=== PATIENT | female | born 1945 | race Caucasian/White ===

== ENCOUNTER → 2016-09-13 | Outpatient (CLI) | payer OTHER, MEDICARE ==
--- NOTE | 2016-09-13 11:29 | DX ---
Weightbearing Right Knee, 3 Views Total, 10:14 a.m. Clinical History: 71-year-old female who underwent a total knee arthroplasty on August 09, 2016, pre sents for follow up evaluation. ICD10 Diagnostic Code: M17.11. Comparison Study: Right knee, dated August 09, 2016. Findings: There is stable anatomic alignment of the tricomponent knee arthroplasty. There is no perip rosthetic lucency to suggest hardware failure, and there is a normal appearance of the radiolucent sp acer. There has been interval resorption of postoperative air, and removal of the pneumatic cuff. The re is a small residual suprapatellar joint effusion. There is an enthesophyte along the anterosuperio r patella where the quadriceps tendon inserts. Impression: Stable anatomic alignment following a tricomponent knee arthroplasty, compared to [place] r 2015.
== END ==
LOC: BMCIMAGING 10:14
PROVIDERS: ATTEND Physician Assistant
DX: Z09 Encounter for follow-up examination after completed treatment for conditions other than malignant neoplasm (principal); Z96.651 Presence of right artificial knee joint

== ENCOUNTER → 2016-11-17 | Outpatient (CLI) | payer OTHER, MEDICARE | LOC: BMCIMAGING 09:57 | PROVIDERS: ATTEND Physician Assistant | DX: Z09 Encounter for follow-up examination after completed treatment for conditions other than malignant neoplasm (principal); Z96.651 Presence of right artificial knee joint; M79.89 Other specified soft tissue disorders ==

== ENCOUNTER → 2017-03-30 | Outpatient (CLI) | payer OTHER, MEDICARE | LOC: BMCIMAGING 10:51 | PROVIDERS: ATTEND Orthopaedic Surgery | DX: Z96.651 Presence of right artificial knee joint (principal) ==

== ENCOUNTER → 2017-04-26 | Outpatient (CLI) | payer OTHER, MEDICARE | LOC: FIMAGING 08:12 | PROVIDERS: ATTEND Internal Medicine | DX: N20.0 Calculus of kidney (principal); N13.30 Unspecified hydronephrosis; K57.30 Diverticulosis of large intestine without perforation or abscess without bleeding; R91.1 Solitary pulmonary nodule; Z90.710 Acquired absence of both cervix and uterus; Z90.722 Acquired absence of ovaries, bilateral ==

== ENCOUNTER → 2017-04-27 | Outpatient (CLI) | payer OTHER, MEDICARE | LOC: BMCIMAGING 10:55 | PROVIDERS: ATTEND Orthopaedic Surgery | DX: M25.511 Pain in right shoulder (principal); Z96.611 Presence of right artificial shoulder joint ==

== ENCOUNTER → 2018-01-18 | Outpatient (CLI) | payer OTHER, MEDICARE | LOC: BMCIMAGING 11:51 | PROVIDERS: ATTEND Internal Medicine | DX: R91.8 Other nonspecific abnormal finding of lung field (principal); M51.34 Other intervertebral disc degeneration, thoracic region ==

== ENCOUNTER 2018-03-11 18:53 | Emergency (ER) | payer OTHER, MEDICARE ==
--- NOTE | 2018-03-11 20:25 | EDPHY ---
H & P Time Seen by Provider: 03/11/18 20:21 HPI/ROS: CHIEF COMPLAINT: Left hand pain HISTORY OF PRESENT ILLNESS: 73-year-old female here with left hand pain after she tripped and fell and landed on outstretched hand. She denies any other associated injury and she is not taking blood thinners. She not hit her head. REVIEW OF SYSTEMS: Constitutional: No fever, no chills. Eyes: No discharge. ENT: No sore throat. Cardiovascular: No chest pain, no palpitations. Respiratory: No cough, no shortness of breath. Gastrointestinal: No abdominal pain, no vomiting. Genitourinary: No hematuria. Musculoskeletal: No back pain. Skin: No rashes. Neurological: No headache. Smoking Status: Former smoker Physical Exam: General Appearance: Alert and no distress. Eyes: Pupils equal and round no injection. Respiratory: Chest is nontender, lungs are clear to auscultation. Cardiac: regular rate and rhythm. Gastrointestinal: Abdomen is soft and nontender, no masses, bowel sounds normal. Musculoskeletal: Neck is supple and nontender. Extremities have full range of motion. Tenderness and swelling to the 3rd 4th and 5th MCP of the left hand Skin: No rashes or lesions. Ecchymosis to the left hand Constitutional: Initial Vital Signs Temperature (C) 36.6 C 03/11/18 18:58 Heart Rate 76 03/11/18 18:58 Respiratory Rate 18 03/11/18 18:58 Blood Pressure 191/91 H 03/11/18 18:58 O2 Sat (%) 95 03/11/18 18:58 O2 Delivery Mode Room Air Allergies/Adverse Reactions: ciprofloxacin Allergy (Intermediate, Verified 03/11/18 18:54) Vomiting codeine Allergy (Intermediate, Verified 03/11/18 18:54) Dyspnea iodine Allergy (Intermediate, Verified 03/11/18 18:54) Dyspnea prochlorperazine edisylate [From Compazine] Allergy (Intermediate, Verified 03/22 18:54) Dyspnea prochlorperazine maleate [From Compazine] Allergy (Verified 03/11/18 18:54) Home Medications: Medication Instructions Recorded Ergocalciferol [Vitamin D2 (*)] 50,000 unit PO FRANCIS 12/03/13 Pantoprazole Sodium [Protonix 40mg 40 mg PO DAILY 12/03/13 (*)] Metoprolol Tartrate [Lopressor 25 25 mg PO BID 12/05/13 mg (*)] Losartan Potassium [Cozaar 25 mg 25 mg PO DAILY 08/04/16 (*)] Aspirin [Aspirin 325 mg (*)] 325 mg PO DAILY #0 tab 08/11/16 celeCOXIB [Celebrex (*)] 200 mg PO 03/11/18 Medical Decision Making - Diagnostics Imaging Results: Imaging Impressions Hand X-Ray 03/11/18 19:10 Impression: 1. Fracture of the proximal phalanx of the left fourth digit. 2. Degenerative changes are noted. ED Course/Re-evaluation: Patient here with proximal phalanx fracture was placed in a volar splint and referred to hand surgery. Differential Diagnosis: Fracture, dislocation, neurovascular injury, compartment syndrome Departure - Departure Disposition: Home, Routine, Self-Care Clinical Impression: Phalanx, proximal fracture of finger Condition: Good Instructions: Finger Fracture (ED) Additional Instructions: Please keep the splint on until they follow up with the orthopedic hand surgeon. Call for an appointment. Referrals: Stacey Molina MD [Primary Care Provider] - As per Instructions Adonis Ace MD [Medical Doctor] - As per Instructions
[2018-03-11 20:37] VITALS: BP 173/103
== END 2018-03-11 20:51 | disposition home or self-care (01) ==
DX: S62.615A Displaced fracture of proximal phalanx of left ring finger, initial encounter for closed fracture (principal); Z79.82 Long term (current) use of aspirin; Z87.891 Personal history of nicotine dependence; W01.0XXA Fall on same level from slipping, tripping and stumbling without subsequent striking against object, initial encounter

== ENCOUNTER → 2018-04-19 | Outpatient (CLI) | payer OTHER, MEDICARE | DX: S62.615D Displaced fracture of proximal phalanx of left ring finger, subsequent encounter for fracture with routine healing (principal) ==

== ENCOUNTER → 2018-05-31 | Outpatient (CLI) | payer OTHER, MEDICARE | LOC: FCPNEURO 05-30 20:30 | PROVIDERS: ATTEND Student in an Organized Health Care Education/Training Program | DX: G47.33 Obstructive sleep apnea (adult) (pediatric) (principal); G47.34 Idiopathic sleep related nonobstructive alveolar hypoventilation ==

== ENCOUNTER → 2018-06-08 | Outpatient (CLI) | payer OTHER, MEDICARE | LOC: BMCIMAGING 09:32 | PROVIDERS: ATTEND Orthopaedic Surgery Hand Surgery | DX: M19.041 Primary osteoarthritis, right hand (principal) | CPT/HCPCS: 86141-90; 86812-90 ==

== ENCOUNTER → 2018-07-17 | Outpatient (CLI) | payer OTHER, MEDICARE | LOC: BMCIMAGING 15:45 | PROVIDERS: ATTEND Family Medicine | DX: M79.604 Pain in right leg (principal); M79.89 Other specified soft tissue disorders ==

== ENCOUNTER 2018-11-29 17:16 | Observation (INO) | payer OTHER, MEDICARE ==
--- NOTE | 2018-11-29 17:24 | EDPHY ---
H & P Time Seen by Provider: 11/29/18 17:23 HPI/ROS: CHIEF COMPLAINT: 2 days of chest pain HISTORY OF PRESENT ILLNESS: Patient history of coronary disease with stenting in 2007. She has hypertension. She presents with 2 days of feeling short of breath especially with exertion walking her dogs. At 7:15 a.m. Today she awakened with tightness in her chest. She still feels a little short of breath. At 11:00 a.m. She felt like her left arm was hot and she has had a little bit of a cough over the last 48 hr. Symptoms are still present on arrival and are mild to moderate in nature. Not associated with leg swelling or hemoptysis or fever or chills. REVIEW OF SYSTEMS: Eye: no change in vision ENT: no sore throat Cardiac: HPI Pulmonary: HPI Abdomen: no vomiting, diarrhea, abdominal pain Musculoskeletal: no back pain Skin: no rash Neuro: no headache Constitutional: no fever : no urinary symptoms Increasing fatigue A comprehensive 10 point review of systems is otherwise negative aside from elements mentioned in the history of present illness. PAST MEDICAL HISTORY: Includes coronary disease with stenting in 2007, hypertension, cholecystectomy, hysterectomy, lumbar spine surgery, GERD Social history: Currently not smoking, [facility] patient. General Appearance: Alert and conversant, cooperative. Eyes: No scleral icterus. ENT, Mouth: Normal mucous membranes. Respiratory: Normal respiratory effort, breath sounds equal, lungs are clear to auscultation. Cardiovascular: Regular rate and rhythm. No murmur. Gastrointestinal: Abdomen is soft and non tender. Neurological: Alert, face symmetric, normal motor and sensory in extremities. Skin: Warm and dry, no rashes. Musculoskeletal: No peripheral edema. No calf tenderness. Psychiatric: Not agitated. Emergency Department course/MDM: EKG does not show acute ST changes. Concern for coronary disease with history and patient's previous stenting. Differential diagnosis considered for chest pain including but not limited to myocardial ischemia, aortic dissection, pericarditis, pulmonary embolus, chest wall pain, pleural inflammation and pulmonary infectious causes. Labs to include x-ray troponin and D-dimer. Sublingual nitroglycerin, patient took regular full aspirin this morning at home. 1809: Chest x-ray personally interpreted shows some pulmonary edema, plan to admit for chest pain with cardiac risk factors and previous stenting. Reviewed with the patient, start IV nitroglycerin, admission hospitalist. A low suspicion for pulmonary embolism, D-dimer less than 0.1 times age. Smoking Status: Former smoker Constitutional: Initial Vital Signs Temperature (C) 36.8 C 11/29/18 17:20 Heart Rate 69 11/29/18 17:20 Respiratory Rate 18 11/29/18 17:20 Blood Pressure 210/107 H 11/29/18 17:20 O2 Sat (%) 94 11/29/18 17:20 O2 Delivery Mode Room Air Allergies/Adverse Reactions: ciprofloxacin Allergy (Intermediate, Verified 11/29/18 17:17) Vomiting codeine Allergy (Intermediate, Verified 11/29/18 17:17) Dyspnea iodine Allergy (Intermediate, Verified 11/29/18 17:17) Dyspnea prochlorperazine edisylate [From Compazine] Allergy (Intermediate, Verified 17:17) Dyspnea prochlorperazine maleate [From Compazine] Allergy (Verified 11/29/18 17:17) Home Medications: Medication Instructions Recorded Ergocalciferol [Vitamin D2 (*)] 50,000 unit PO WE 12/03/13 Pantoprazole Sodium [Protonix 40mg 40 mg PO DAILY 12/03/13 (*)] Metoprolol Tartrate [Lopressor 25 25 mg PO BID 12/05/13 mg (*)] Losartan Potassium [Cozaar 25 mg 25 mg PO HS 08/04/16 (*)] Aspirin [Aspirin 325 mg (*)] 325 mg PO DAILY #0 tab 08/11/16 celeCOXIB [Celebrex (*)] 200 mg PO DAILY 03/11/18 Ascorbic Acid [Vitamin C] 500 mg PO DAILY 11/29/18 Cetirizine [ZyrTEC 10 mg (*)] 10 mg PO HS 11/29/18 Ferrous Gluconate 324 mg PO DAILY 11/29/18 Hydroxychloroquine Sulfate 200 mg PO BID 11/29/18 [Plaquenil 200 mg (*)] Rosuvastatin Calcium 5 mg PO DAILY 11/29/18 predniSONE 5 mg PO DAILY 11/29/18 Medical Decision Making - Diagnostics EKG Interpretation: 12-lead EKG interpreted by me; official reading is in computer system. My interpretation is sinus rhythm with borderline left axis rate 61 no acute ischemic changes. Imaging Results: Imaging Impressions Chest X-Ray 11/29/18 17:35 Impression: 1. COPD/airways disease, without pneumonia. 2. Chronic coronary artery disease. 3. Suspect interstitial lung disease, new since 2013. Imaging: I viewed and interpreted images myself Differential Diagnosis: Differential diagnosis considered for chest pain including but not limited to myocardial ischemia, aortic dissection, pericarditis, pulmonary embolus, chest wall pain, pleural inflammation and pulmonary infectious causes. Consult/Admit Bed Type: [place] [id number] Critical Care Time: Critical care time spent by me, Dr. Whitt, exclusively with the care of this patient was 30 minutes, exclusive of PA or MUD ENGINEER time and exclusive of separate procedures. The organ system at risk was cardiovascular and I ordered the multiple diagnostics, IV nitroglycerin drip to stabilize the patient and prevent worsening of the patient's condition. - Data Points Laboratory Results: Laboratory Results 11/29/18 17:39 11/29/18 17:39 11/29/18 11/29/18 11/29/18 17:39 17:39 17:39 WBC 8.04 10^3/uL 10^3/uL (3.80-9.50) RBC 4.46 10^6/uL 10^6/uL (4.18-5.33) Hgb 13.0 g/dL g/dL (12.6-16.3) Hct 40.5 % % (38.0-47.0) MCV 90.8 fL fL (81.5-99.8) MCH 29.1 pg pg (27.9-34.1) MCHC 32.1 g/dL L g/dL (32.4-36.7) RDW 14.5 % % (11.5-15.2) Plt Count 258 10^3/uL 10^3/uL (150-400) MPV 10.4 fL fL (8.7-11.7) Neut % (Auto) 67.4 % % (39.3-74.2) Lymph % (Auto) 23.0 % % (15.0-45.0) [place] % (Auto) 6.5 % % (4.5-13.0) Eos % (Auto) 2.2 % % (0.6-7.6) Baso % (Auto) 0.5 % % (0.3-1.7) Nucleat RBC Rel Count 0.0 % % (0.0-0.2) Absolute Neuts (auto) 5.42 10^3/uL 10^3/uL (1.70-6.50) Absolute Lymphs (auto) 1.85 10^3/uL 10^3/uL (1.00-3.00) Absolute Monos (auto) 0.52 10^3/uL 10^3/uL (0.30-0.80) Absolute Eos (auto) 0.18 10^3/uL 10^3/uL (0.03-0.40) Absolute Basos (auto) 0.04 10^3/uL 10^3/uL (0.02-0.10) Absolute Nucleated RBC 0.00 10^3/uL 10^3/uL (0-0.01) Immature Gran % 0.4 % % (0.0-1.1) Immature Gran # 0.03 10^3/uL 10^3/uL (0.00-0.10) D-Dimer 0.59 ug/mLFEU H ug/mLFEU (0.00-0.50) Sodium 139 mEq/L mEq/L (135-145) Potassium 4.0 mEq/L mEq/L (3.5-5.2) Chloride 105 mEq/L mEq/L (97-110) Carbon Dioxide 23 mEq/l mEq/l (22-31) Anion Gap 11 mEq/L mEq/L (6-14) BUN 19 mg/dL mg/dL (7-23) Creatinine 0.8 mg/dL mg/dL (0.6-1.0) Estimated GFR > 60 Glucose 95 mg/dL mg/dL (70-100) Calcium 9.6 mg/dL mg/dL (8.5-10.4) POC Troponin I NT-Pro-B Natriuret Pep 11/29/18 11/29/18 17:30 17:26 WBC RBC Hgb Hct MCV MCH MCHC RDW Plt Count MPV Neut % (Auto) Lymph % (Auto) [place] % (Auto) Eos % (Auto) Baso % (Auto) Nucleat RBC Rel Count Absolute Neuts (auto) Absolute Lymphs (auto) Absolute Monos (auto) Absolute Eos (auto) Absolute Basos (auto) Absolute Nucleated RBC Immature Gran % Immature Gran # D-Dimer Sodium Potassium Chloride Carbon Dioxide Anion Gap BUN Creatinine Estimated GFR Glucose Calcium POC Troponin I 0.01 ng/mL ng/mL (0.00-0.08) NT-Pro-B Natriuret Pep 242 pg/mL H pg/mL (0-125) Medications Given: Nitroglycerin (Nitrostat) 0.4 mg SL Q5M PRN PRN Reason: Chest Pain Last Admin: 11/29/18 17:59 Dose: 0.4 mg Discontinued Medications Nitroglycerin/Dextrose (Nitroglycerin 200 Mcg/Ml (Premix)) 250 mls @ 0 mls/hr IV CONT ONE; Titrate PRN Reason: Protocol Stop: 11/29/18 18:17 Last Admin: 11/29/18 18:27 Dose: 250 mls Point of Care Test Results: Chemistry 11/29/18 17:30 POC Troponin I 0.01 ng/mL ng/mL (0.00-0.08) Departure - Departure Disposition: [facility] Inpatient Acute Clinical Impression: Chest pain Qualifiers: Chest pain type: unspecified Qualified Code(s): R07.9 - Chest pain, unspecified Condition: Good
[2018-11-29] MEDS ORDERED: NITROGLYCERIN 0.4 MG BTL SL PRN (17:35)
[2018-11-29 17:43] LABS: PLATELET COUNT 258 10^3/uL (150-400)
--- NOTE | 2018-11-29 17:50 | CPEKG ---
Test Reason : OPEN Blood Pressure : / mmHG Vent. Rate : 061 BPM Atrial Rate : 062 BPM P-R Int : 197 ms QRS Dur : 108 ms QT Int : 432 ms P-R-T Axes : 010 -21 068 degrees QTc Int : 435 ms Sinus rhythm Borderline left axis deviation Confirmed by Edward Whitt ([id number]) on 11/29/2018 5:49:22 PM Referred By: Edward Whitt Confirmed By:Edward Whitt
[2018-11-29] MEDS ORDERED: NITROGLYCERIN/DEXTROSE 250 ML IV ONE (18:16)
[2018-11-29] MEDS ORDERED: ONDANSETRON 4 MG/2 ML VIAL IVP PRN (18:24)
[2018-11-29] MEDS ORDERED: ACETAMINOPHEN 325 MG TAB PO PRN (18:24)
[2018-11-29] MEDS ORDERED: ONDANSETRON DISINTEGRATING 4 MG TAB PO PRN (18:24)
--- NOTE | 2018-11-29 19:01 | PDGENHP ---
History and Physical - Chief Complaint Chest Pain, SOB - History of Present Illness Jessica Ordoñez is a 73 yo F with a PMHx of recently dx Lupus, CAD s/p PCI in 2007, HTN, GERD who presents to [facility] for chest pain and SOB. She reports that chest pain started approx. 2 days ago when she was walking her dogs with associated SOB. She had recurrence of chest pain described as chest tightness this morning when she awoke. It is associated with radiation to her L arm with a warm sensation in that extremity. She denies any palpitations, edema, f/c, d/ c, n/v, abdominal pain. She notes that she was recently diagnosed with lupus and has been started on hydroxychloroquine and prednisone. History Information - Allergies/Home Medication List Allergies/Adverse Reactions: ciprofloxacin Allergy (Intermediate, Verified 11/29/18 17:17) Vomiting codeine Allergy (Intermediate, Verified 11/29/18 17:17) Dyspnea iodine Allergy (Intermediate, Verified 11/29/18 17:17) Dyspnea prochlorperazine edisylate [From Compazine] Allergy (Intermediate, Verified 17:17) Dyspnea prochlorperazine maleate [From Compazine] Allergy (Verified 11/29/18 17:17) Home Medications: Ergocalciferol [Vitamin D2 (*)] 50,000 unit PO FRANCIS 12/03/13 [Last Taken 11/30/13 [id number]] Pantoprazole Sodium [Protonix 40mg (*)] 40 mg PO DAILY 12/03/13 [Last Taken 04/18 40 mg] Metoprolol Tartrate [Lopressor 25 mg (*)] 25 mg PO BID 12/05/13 [Last Taken 06/18 00:00 25 mg] Losartan Potassium [Cozaar 25 mg (*)] 25 mg PO DAILY 08/04/16 [Last Taken Unknown] celeCOXIB [Celebrex (*)] 200 mg PO 03/11/18 [Last Taken Unknown] Hydroxychloroquine Sulfate 11/29/18 [Last Taken Unknown] Prednisone 11/29/18 [Last Taken Unknown] Rosuvastatin Calcium 11/29/18 [Last Taken Unknown] I have personally reviewed and updated: family history, medical history, social history, surgical history - Past Medical History coronary artery disease, hypertension, hyperlipidemia, myocardial infarction - Surgical History Additional surgical history: Shoulder and knee replacements - Family History Positive for: non-pertinent - Social History Smoking Status: Former smoker Review of Systems Review of Systems: ROS: 10pt was reviewed & negative except for what was stated in HPI & below Physical Exam Physical Exam: Temp Pulse Resp BP Pulse Ox 36.8 C 57 L 18 155/76 H 93 11/29/18 17:20 11/29/18 18:55 11/29/18 18:55 11/29/18 18:55 11/29/18 18:55 Constitutional: no apparent distress Eyes: PERRL Ears, Nose, Mouth, Throat: moist mucous membranes Cardiovascular: regular rate and rhythym Respiratory: no respiratory distress Gastrointestinal: soft, non-tender abdomen Skin: warm Musculoskeletal: full muscle strength Neurologic: AAOx3 Psychiatric: anxious Lab Data & Imaging Review 11/29/18 17:39 11/29/18 17:39 WBC 8.04 10^3/uL (3.80-9.50) 11/29/18 17:39 RBC 4.46 10^6/uL (4.18-5.33) 11/29/18 17:39 Hgb 13.0 g/dL (12.6-16.3) 11/29/18 17:39 Hct 40.5 % (38.0-47.0) 11/29/18 17:39 MCV 90.8 fL (81.5-99.8) 11/29/18 17:39 MCH 29.1 pg (27.9-34.1) 11/29/18 17:39 MCHC 32.1 g/dL (32.4-36.7) L 11/29/18 17:39 RDW 14.5 % (11.5-15.2) 11/29/18 17:39 Plt Count 258 10^3/uL (150-400) 11/29/18 17:39 MPV 10.4 fL (8.7-11.7) 11/29/18 17:39 Neut % (Auto) 67.4 % (39.3-74.2) 11/29/18 17:39 Lymph % (Auto) 23.0 % (15.0-45.0) 11/29/18 17:39 [place] % (Auto) 6.5 % (4.5-13.0) 11/29/18 17:39 Eos % (Auto) 2.2 % (0.6-7.6) 11/29/18 17:39 Baso % (Auto) 0.5 % (0.3-1.7) 11/29/18 17:39 Nucleat RBC Rel Count 0.0 % (0.0-0.2) 11/29/18 17:39 Absolute Neuts (auto) 5.42 10^3/uL (1.70-6.50) 11/29/18 17:39 Absolute Lymphs (auto) 1.85 10^3/uL (1.00-3.00) 11/29/18 17:39 Absolute Monos (auto) 0.52 10^3/uL (0.30-0.80) 11/29/18 17:39 Absolute Eos (auto) 0.18 10^3/uL (0.03-0.40) 11/29/18 17:39 Absolute Basos (auto) 0.04 10^3/uL (0.02-0.10) 11/29/18 17:39 Absolute Nucleated RBC 0.00 10^3/uL (0-0.01) 11/29/18 17:39 Immature Gran % 0.4 % (0.0-1.1) 11/29/18 17:39 Immature Gran # 0.03 10^3/uL (0.00-0.10) 11/29/18 17:39 D-Dimer 0.59 ug/mLFEU (0.00-0.50) H 11/29/18 17:39 Sodium 139 mEq/L (135-145) 11/29/18 17:39 Potassium 4.0 mEq/L (3.5-5.2) 11/29/18 17:39 Chloride 105 mEq/L (97-110) 11/29/18 17:39 Carbon Dioxide 23 mEq/l (22-31) 11/29/18 17:39 Anion Gap 11 mEq/L (6-14) 11/29/18 17:39 BUN 19 mg/dL (7-23) 11/29/18 17:39 Creatinine 0.8 mg/dL (0.6-1.0) 11/29/18 17:39 Estimated GFR > 60 11/29/18 17:39 Glucose 95 mg/dL (70-100) 11/29/18 17:39 Calcium 9.6 mg/dL (8.5-10.4) 11/29/18 17:39 POC Troponin I 0.01 ng/mL (0.00-0.08) 11/29/18 17:30 NT-Pro-B Natriuret Pep 242 pg/mL (0-125) H 11/29/18 17:26 Assessment & Plan Assessment: Chest Pain - Reports 2 days of chest pain, at rest and with exertion, improved s/p nitroglycerin - EKG and Trop negative for acute ischemic changes on admission - Will trend Trop x3, repeat EKG - BP significantly elevated on admission, s/p nitro and started on nitro gtt - Given hx of CAD, cardiology consulted by ED on admission, f/u recs - Will order MPS for the AM, NPO at midnight - Continue ASA, B-Олег - Will also order CTA Chest to r/o PE in setting of elevated D-dimer Hypertensive Urgency - BP 200/100's on admission - Patient reports SBP 170 this AM, usually runs elevated - Started on Nitro gtt as above - Will give home BP medications including Losartan and Metoprolol this evening with plan to wean off of Nitro gtt overnight Lupus - Recently dx per patient - Continue home Hydroxychloroquine and Prednisone pending med rec CAD - S/p PCI in 2007 - Management of acute chest pain as above - Continue home ASA, B-Олег, and statin pending med rec ILD? - Noted on CXR, new from 2013, also with recently dx Lupus - CTA Chest pending, may need HRCT in the future - Consider pulmonology consult as inpatient vs. outpatient for further evaluation and management FEN: Cardiac, NPO at midnight DVT PPx: Lovenox Code: FULL Dispo: Admit to Observation
[2018-11-29] MEDS ORDERED: IOPAMIDOL (ISOVUE-370) 150 ML BTL IV ONE (19:17)
[2018-11-29] MEDS ORDERED: NITROGLYCERIN/DEXTROSE 250 ML IV SCH (19:30)
[2018-11-29] MEDS ORDERED: ERGOCALCIFEROL 50,000 I.UNIT CAP PO SCH (20:00)
[2018-11-29] MEDS ORDERED: CETIRIZINE 10 MG TAB PO SCH (21:00)
[2018-11-29] MEDS: METOPROLOL TARTRATE 25 MG TAB PO SCH ×2 (21:49→21:50)
[2018-11-29] MEDS: HYDROXYCHLOROQUINE SULFATE 200 MG TAB PO SCH (21:50)
[2018-11-29] MEDS: LOSARTAN POTASSIUM 25 MG TAB PO SCH ×2 (21:50)
[2018-11-30] MEDS ORDERED: predniSONE 5 MG TAB PO SCH (09:00)
[2018-11-30] MEDS ORDERED: FERROUS SULFATE 325 MG TAB PO SCH (09:00)
[2018-11-30] MEDS ORDERED: ROSUVASTATIN CALCIUM 10 MG TAB PO SCH (09:00)
[2018-11-30] MEDS ORDERED: ASPIRIN 325 MG TAB PO SCH (09:00)
[2018-11-30] MEDS ORDERED: PANTOPRAZOLE SODIUM 40 MG TAB PO SCH (09:00)
[2018-11-30] MEDS ORDERED: ENOXAPARIN 40 MG/0.4 ML SYR SC SCH (09:00)
[2018-11-30] MEDS: HYDROXYCHLOROQUINE SULFATE 200 MG TAB PO SCH (09:54)
[2018-11-30] MEDS: METOPROLOL TARTRATE 25 MG TAB PO SCH (09:54)
--- NOTE | 2018-11-30 11:28 | ASMTCMCOM ---
CM Note CM Note Notes: Pt is a 73 y/o female admitted for chest pain. Therapies have been ordered and awaiting recommendations. Needs are TBD at this time. CM to follow. Plan: TBD Date Signed: 11/30/2018 11:28 AM Electronically Signed By:JOSIAH Goddard
[2018-11-30] MEDS ORDERED: REGADENOSON 0.4 MG/5 ML SYR IVP ONE (12:16)
--- NOTE | 2018-11-30 13:25 | CPR ---
[f rep st] NONINVASIVE CARDIAC PROCEDURE REPORT REPORT TITLE: Lexiscan injection of Lexiscan MPI study. INDICATION FOR PROCEDURE: Lightheadedness, chest pressure, known history of CAD, unable to run on tr Divided. PRE: After obtaining informed consent, ensuring patient's n.p.o. status of caffeine for greater than 12 hours, patient was placed on electrocardiogram. Initial EKG shows sinus rhythm, leftward axis, w ith nonspecific T-wave abnormalities in inferior leads. The patient denies any chest pain, pressure, or symptoms suggesting of ischemia. Initial blood pressure 120/68, saturation 96% on 2 L nasal tobi holly. The patient denies chest pain, pressure, shortness of breath, or symptoms suggesting of ischemi a. INJECTION: Patient was given Lexiscan slow IV push, followed by nuclear isotope. She was noted to i ncrease her heart rate up to 75 beats per minute after 1 minute post injection, with symptoms of shor tness of breath and mild chest pressure, this dissipated within 2 minutes post-injection with caffein ated beverage. Her vital signs remained stable, her electrocardiogram remained unchanged. By 5 sean mihir post injection, all her symptoms subsided, her heart rate returned down to 69 beats per minute, a nd no significant EKG changes. Blood pressure 128/66, saturation 99% on room air. IMPRESSION: A 73-year-old female with known history of CAD, ongoing episodes of lightheadedness, fabio ng evaluated for coronary ischemia by Dorothea MPI study. No significant EKG changes noted with injectio n. Mild shortness of breath and chest pressure, which subsided within 2 minutes post injection with caffeinated beverage. Currently, she is symptom free. Her vital signs are stable. She will finish poststress imaging in Nuclear Medicine at this time. /[id number]/MODL
[2018-11-30 15:24] VITALS: BP 146/78
[2018-11-30] MEDS ORDERED: LOSARTAN POTASSIUM 50 MG TAB PO SCH (16:48)
--- NOTE | 2018-11-30 16:51 | PDDCSUM ---
Discharge Summary Discharge Summary: Date of Admission: 11/29/2018 Date of Discharge: 11/30/2018 Studies: Lexiscan stress with MPI Discharge Diagnoses: 1. Chest pain, likely related to 2. Severe hypertension 3. Chest x-ray changes concerning for new interstitial lung disease 4. CAD s/p PCI 5. SLE Brief Hospital Course: 73yo F with history of CAD s/p PCI in 2007, recent diagnosis of SLE on prednisone and plaquenil presented with 2 days of chest pain associated with dyspnea. Her BP was 200/100s on admission. She was started on a nitroglycerin infusion with improvement in her BP; her chest pain resolved with improvement in BP. She had serial cardiac enzymes and ECG that were negative for ischemia. Telemetry was without arrhythmia. A d-dimer was elevated but not significantly elevated when adjusted for her age; she also has an iodine allergy and would be unable to get CTA chest. She was ambulating without chest pain prior to discharge. We did increase her losartan and her BP remained 140s/70s at time of discharge. I encouraged her to keep a BP log. Of note, her chest x-ray was suggestive of new interstitial lung disease. This is a possibility with her SLE. I discussed this with her. She would like to get an outpatient CT of her chest. I think this would need to be high resolution. Medications: Please refer to EMR for complete list. I increased her losartan from 25 to 50mg daily. Follow Up Plan: 1. She has clinic appointment with her PCP Dr Molina and embedded linux engineer Dr Hankins in the next 1-2 weeks 2. Repeat BMP in 1 week to assess renal function 3. Consider non-contrasted high resolution chest CT Physical Exam: Vitals reviewed, BP 140/70s. Alert and oriented, rrr, lungs clear without crackles or wheezes, abdomen soft and nt, no leg edema or JVD.
== END 2018-11-30 18:49 | disposition home or self-care (01) ==
LOC: F2W 20:15
PROVIDERS: ADMIT Internal Medicine; ATTEND Internal Medicine
DX: R07.89 Other chest pain (principal); I16.0 Hypertensive urgency; J84.9 Interstitial pulmonary disease, unspecified; I25.10 Atherosclerotic heart disease of native coronary artery without angina pectoris; Z95.5 Presence of coronary angioplasty implant and graft; M32.9 Systemic lupus erythematosus, unspecified
CPT/HCPCS: 71046; 78452; 93005; 93017; 96372; 96374; 97161; 97166; 99291; A9500; G0378; J1650; J2785; J7512; 84484-ER; Q9967

== ENCOUNTER → 2018-12-05 | Outpatient (CLI) | payer OTHER, MEDICARE | LOC: FIMAGING 13:53 | PROVIDERS: ATTEND Internal Medicine | DX: R93.89 Abnormal findings on diagnostic imaging of other specified body structures (principal); J84.9 Interstitial pulmonary disease, unspecified; J98.9 Respiratory disorder, unspecified; R91.8 Other nonspecific abnormal finding of lung field; I77.810 Thoracic aortic ectasia; I25.10 Atherosclerotic heart disease of native coronary artery without angina pectoris; M32.9 Systemic lupus erythematosus, unspecified ==

== ENCOUNTER → 2018-12-13 | Day surgery (SDC) | payer OTHER, MEDICARE ==
[~2018-12-13] MED LIST: ASPIRIN EC 325 MG TAB PO ONE; ATROPINE SULFATE 1 MG/10 ML SYR IVP PRN; DIAZEPAM 5 MG TAB PO ONE; FAMOTIDINE 20 MG TAB PO ONE; FAMOTIDINE 20 MG/NACL 50 ML IV ONE; IOPAMIDOL (ISOVUE-370) 150 ML BTL IV ONE; LIDOCAINE 1% 300 MG/30 ML SDV ONE; MIDAZOLAM 2 MG/2 ML VIAL ONE; NITROGLYCERIN 0.4 MG BTL SL PRN; NS 1,000 ML IV ONE; ONDANSETRON 4 MG/2 ML VIAL IVP PRN; diphenhydrAMINE 25 MG CAP PO ONE; fentaNYL 100 MCG/2 ML INJ ONE; methylPREDNISolone SOD SUCC 125 MG/2 ML VIAL IVP ONE
[2018-12-13 10:15] LABS: PLATELET COUNT 224 10^3/uL (150-400)
[2018-12-13 10:23] LABS: INR 0.98 (0.83-1.16); PROTIME(PATIENT) 12.6 SEC (12.0-15.0)
--- NOTE | 2018-12-13 11:14 | PDHPUP ---
History & Physical Update H&P update statement: This history and physical update is based on an assessment of the patient which was completed after admission or registration (within 24 hours), but prior to the surgery/procedure. 73 year old female with hx of CAD and previous PCI to LAD with ongoing complaints of sob, ridley and exertional chest pain. Plan for right and left heart cath. Risks and benefits discussed in detail. Consents signed. Pt agreeable to pursue. H&P update: H&P reviewed & patient examined, no change in patient's condition since H&P completed (Pt reports allergy to contrast. I have premedicated with solumedrol, benadryl and pepcid. )
--- NOTE | 2018-12-13 11:14 | PDPROPOC ---
Sedation Plan of Care Sedation Plan of Care: vital signs stable, mental status noted, patient educated of risks, benefits, alternatives, patient can tolerate sedation ASA Classification: ASA 2 Planned drugs: fentanyl, midazolam Mallampati Score: Class 2 Mallampati Reference Image: Patient passed 3-3-2 rule?: Yes
--- NOTE | 2018-12-13 13:25 | CPIP ---
[f rep st] INVASIVE CARDIAC PROCEDURE DATE OF PROCEDURE: 12/13/2018 PROCEDURE PERFORMED: Left and right heart catheterization. INDICATION FOR PROCEDURE: Patient with complaints of shortness of breath, dyspnea on exertion, exerc ise intolerance, and exertional chest pain in the setting of known coronary artery disease with previ ous PCI to the proximal LAD in 2007. Of note, the patient states she does have a contrast allergy. She was subsequently premedicated with Benadryl, Pepcid, and Solu-Medrol. Medicines were administered approximately 45 minutes to an hour prior to the start of her left heart catheterization. She tolerated the procedure well. She had no evidence of contrast allergy reaction during the course of the case. DESCRIPTION OF PROCEDURE: After consents were consigned for left heart catheterization, right heart catheterization, sedation, as well as possible percutaneous core intervention, the patient was hanane t to the cardiac catheterization lab where she was prepped and draped in sterile fashion. Using the modified Seldinger technique and the micropuncture technique, a 6-Norwegian catheter was place d into the right common femoral artery without complications. Attention was then placed toward the f emoral vein. A 7-[place] sheath was placed in the right common femoral vein without complications. [place] catheter was used to enter the pulmonary artery and obtain wedge pressure. Pulmonary arter y pressures were obtained. Oxygen saturations were obtained at the pulmonary artery, right ventricle and right atrium. Pressures were obtained at wedge, pulmonary artery, right ventricle and right atr ium. [place] catheter was removed without complications. JL4 catheter was used to take images of the left coronary anatomy in multiple projections. JL4 lillie ter was exchanged over a guidewire for a JR4 catheter. JR4 catheter was used to take images of the r ight coronary artery in multiple projections. JR4 catheter was exchanged over a guidewire for an ang led pigtail catheter. Angled pigtail catheter was used to cross the aortic valve. Left ventriculogr am was performed. LVEDP was assessed and aortic valve gradient was assessed on pull-back. Angled pi gtail catheter was removed over guidewire without complications. Right common femoral artery angiography was obtained, demonstrating appropriate placement of the 6-Fr ench sheath suitable for Angio-Seal deployment. Patient tolerated the procedure well. There were no postoperative complications. HEMODYNAMICS: Pulmonary capillary wedge pressure 14. RV pressure 38/7 with RV end-diastolic pressur e of 15. Right atrial pressure of 10. Pulmonary artery pressure of 37/17. Aortic pressure 146/79. LVEDP 23 mmHg. Cardiac output of 7.08 L/minute. Cardiac index 4.17. LEFT HEART CATHETERIZATION: 1. Left main demonstrates normal caliber, bifurcates into left anterior descending and left circumfl ex coronary artery. There is no evidence of coronary disease within the left main. 2. Left anterior descending artery: Left anterior descending artery demonstrates 20% proximal narro wing prior to the first proximal LAD stent. There is no evidence of in-stent stenosis. There is mil d luminal irregularities in the mid LAD with no evidence of flow-limiting coronary disease within the LAD or within the percutaneous stents placed in 2007. 3. Left circumflex vessel is a dominant caliber vessel. There are mild luminal irregularities in th e proximal segment. There is a moderate size 1st obtuse marginal branch with mild luminal irregulari ties with no evidence of flow-limiting disease. 4. The right coronary artery is a small nondominant vessel with no evidence of flow-limiting coronar y disease. 5. Left ventriculogram demonstrates LVEF 60% to 65%. No evidence of aortic valve gradient. LVEDP 2 3 mmHg. CONCLUSION: 1. No flow-limiting coronary disease. 2. Patent stents to the proximal left anterior descending. 3. Normal left ventricular function with LVEF of 60% to 65%. 4. Mildly elevated pulmonary pressure with PA pressure of 37/17 with a mean of 25. 5. Angio-Seal deployment to right groin was successful. Hemostasis was achieved. The patient wong ated the procedure well. There were no postoperative complications. /[id number]/MODL
--- NOTE | 2018-12-14 19:34 | CPEKG ---
Test Reason : OPEN Blood Pressure : / mmHG Vent. Rate : 059 BPM Atrial Rate : 059 BPM P-R Int : 201 ms QRS Dur : 105 ms QT Int : 450 ms P-R-T Axes : -17 -24 046 degrees QTc Int : 446 ms Sinus rhythm Borderline left axis deviation Confirmed by Kike Uriarte ([id number]) on 12/14/2018 7:33:26 PM Referred By: Jewel Hankins Confirmed By:Kike Uriarte
== END | disposition home or self-care (01) ==
LOC: FCATH 09:23
PROVIDERS: ATTEND Internal Medicine Cardiovascular Disease
DX: R06.02 Shortness of breath (principal); R07.89 Other chest pain; I25.10 Atherosclerotic heart disease of native coronary artery without angina pectoris; Z95.5 Presence of coronary angioplasty implant and graft; I10 Essential (primary) hypertension; E87.5 Hyperkalemia; Z91.041 Radiographic dye allergy status
CPT/HCPCS: C1760; J1200; J1644; J2250; J2930; J3010; Q9967

== ENCOUNTER → 2018-12-27 | Outpatient (CLI) | payer OTHER, MEDICARE | LOC: FCPNEURO 23:47 | PROVIDERS: ATTEND Student in an Organized Health Care Education/Training Program | DX: G47.33 Obstructive sleep apnea (adult) (pediatric) (principal); G47.34 Idiopathic sleep related nonobstructive alveolar hypoventilation ==